=== PATIENT | male | born 1980 | race Caucasian/White ===

== ENCOUNTER 2017-02-10 02:48 | Emergency (ER) | payer BC, OTHER ==
[~2017-02-10] VITALS: Ht 182.9 cm; Wt 85.7 kg
[~2017-02-10 02:48] MED LIST: ALPR.25 PO; CELE20TA PO
[2017-02-10 02:54] VITALS: BP 130/93; PULSE 79; RESP 16; TEMP 98.2; O2SAT 99
[2017-02-10 04:09] VITALS: BP 130/93; PULSE 79; RESP 18; TEMP 98.2; O2SAT 99
[2017-02-10] MEDS ORDERED: ADDE25CA PO (04:30)
[2017-02-10] MEDS ORDERED: PROP20TA3 PO (04:30)
[2017-02-10] MEDS ORDERED: ACAM1TAB5 PO (04:30)
[2017-02-10] MEDS ORDERED: CLON1 PO (04:30)
[2017-02-10] MEDS ORDERED: CELE20TA PO (04:30)
[2017-02-10] MEDS ORDERED: NALT50TA3 PO (04:30)
[2017-02-10] MEDS ORDERED: IBUP800T23 PO (04:48)
[2017-02-10] MEDS ORDERED: PENI500T PO (04:48)
--- NOTE | 2017-02-10 04:51 | PD ---
HPI Chief Complaint: Oral / Dental Pain or Problem Time Seen by Provider: 04:42 Travel History International Travel<30 days: No Contact w/Intl Traveler<30days: No Traveled to known affect area: No History of Present Illness HPI 36-year-old male presents to the emergency department for complaint of right mandible dental pain. Patient is noted symptoms for 2 days. Patient has had dental fracture for 5-6 months. Patient has more recently been using topical Orajel and acetaminophen. Patient has noted some increased swelling of the gingiva next to the right first molar on the lower jaw with soft tissue swelling and tenderness. No airway compromise. No submandibular tenderness. No fever or chills. Patient is not diabetic. Pain is estimated 8/10 in intensity. PFSH Past Medical History Narrative Medical Bipolar disorder, anxiety depression,Alcohol dependence-detox program; nursing notes reviewed Bipolar Disorder: Yes Anxiety: Yes Depression: Yes Diminished Hearing: No Psychiatric: Yes Immunizations Current: Yes Tetanus Vaccination: Unknown Influenza Vaccination: No Social History Alcohol Use: Yes (4-5 CAT ESPINOZA 3-4 X PER WK) Tobacco Use: No Substance Use: No Allergies-Medications (Allergen,Severity, Reaction): Coded Allergies: No Known Allergies (Unverified , 02/10/17) Reported Meds & Prescriptions Reported Meds & Active Scripts Active Ibuprofen 800 Mg Tab 800 Mg PO Q8H PRN Penicillin V Potassium 500 Mg Tab 500 Mg PO Q6H 7 Days Reported Celexa (Citalopram Hydrobromide) 20 Mg Tab 20 Mg PO DAILY Naltrexone (Naltrexone HCl) 50 Mg Tab 10 Mg PO BID Propranolol (Propranolol HCl) 20 Mg Tab 20 Mg PO Q12HR Klonopin (Clonazepam) 1 Mg Tab 1 Mg PO TID Acamprosate DR 333 Mg Tab 666 Mg PO TID Adderall Xr 24 HR (Amphetamine-Dextroamphetamine ER 24 HR) 25 Mg Cap 25 Mg PO DAILY Once daily in the morning. Review of Systems Except as stated in HPI: all other systems reviewed are Neg General / Constitutional: No: Fever, Chills HENT: Positive: Dental Difficulties, No: Gingival Bleeding Cardiovascular: No: Chest Pain or Discomfort Respiratory: No: Shortness of Breath Gastrointestinal: No: Vomiting Musculoskeletal: No: Pain Skin: Positive Lumps, No Rash Hematologic/Lymphatic: No: Lymph Node Enlargement Physical Exam Narrative GENERAL: Well-developed well-nourished male in no acute distress no respiratory distress SKIN: Warm and dry. HEAD: Normocephalic. EYES: No scleral icterus. No injection or drainage. ENT: Mucous membranes moist , airway is patent, dentition intact, soft tissue swelling and gingival cyst with tenderness noted aligned with the #30 tooth nonfluctuant. NECK: Supple, trachea midline. No JVD or lymphadenopathy. No submandibular mass or lymphadenopathy. CARDIOVASCULAR: Regular rate and rhythm without murmurs, gallops, or rubs. RESPIRATORY: Breath sounds equal bilaterally. No accessory muscle use. GASTROINTESTINAL: Abdomen soft, non-tender, nondistended. Data Data Last Documented VS Vital Signs Date Time Temp Pulse Resp B/P Pulse Ox O2 Delivery O2 Flow Rate FiO2 02/10/17 04:11 79 18 02/10/17 04:09 98.2 130/93 99 MDM Medical Decision Making Medical Screen Exam Complete: Yes Emergency Medical Condition: Yes Medical Record Reviewed: Yes Differential Diagnosis Dental abscess, gingival cyst, dentalgia, dental fracture Narrative Course Patient with dental pain and neighboring dental abscess/dental cyst at the #30 tooth; patient given first dose of oral antibiotic penicillin VK 500 mg and ibuprofen 800 mg; patient stable for outpatient management and follow-up with dentist Diagnosis Primary Impression: Dentalgia Additional Impressions: Gingival cyst Dental abscess Referrals: Dentist call for appointment Patient Instructions: General Instructions Additional Instructions: Complete course of antibiotic as prescribed Return to the emergency department for any concerns or change in condition May continue to use as tolerated [id number] topical medications and warm saltwater swishes Follow-up with dentist call office in a.m. to schedule follow-up appointment Med/Other Pt SpecificInfo: Prescription(s) given Scripts Ibuprofen 800 Mg [id number] Mg PO Q8H PRN (PAIN GREATER THAN 5) #14 TAB Ref 0 Prov:Edna Parekh MD 02/10/17 Penicillin V Potassium 500 Mg [id number] Mg PO Q6H 7 Days Ref 0 Prov:Edna Parekh MD 02/10/17 Disposition: 01 DISCHARGE HOME Condition: Stable Edna Parekh MD Feb 10, 2017 04:51
[2017-02-10 05:13] VITALS: BP 130/75
== END 2017-02-10 05:19 | disposition home or self-care (01) ==
LOC: PHED 02:48
DX: K08.89 Other specified disorders of teeth and supporting structures (principal); K04.7 Periapical abscess without sinus
CPT/HCPCS: 99282